=== PATIENT | female | born 1960 | race Two or more races ===

== ENCOUNTER 2021-01-26 05:59 | Day surgery (SDC) | payer OTHER ==
[~2021-01-26 05:59] MED LIST: COZAAR100 MG PO; FLOVENT HFA10.6 GM IH; HUMIRA PEN40 MG/0.2; HYDROCHLOROTHIA25 MG PO; METFORMIN HCL850 M1 PO; NORVASC5 MG PO; SYNTHROID88 MCG PO
[2021-01-26] MEDS ORDERED: ULTRAM50 MG PO (08:41)
== END 2021-01-26 11:40 | disposition home or self-care (01) ==
LOC: CIR.AMB 05:59
PROVIDERS: ATTEND Surgery
DX: D35.1 Benign neoplasm of parathyroid gland (principal); Z20.822 Contact with and (suspected) exposure to COVID-19